=== PATIENT | female | born 1955 | race African-American/Black ===

== ENCOUNTER 2018-04-19 20:55 | Emergency (ER) | payer MEDICARE, MEDICAID ==
[~2018-04-19] VITALS: Ht 152.4 cm; Wt 90.7 kg
[~2018-04-19 20:55] MED LIST: TRAM-411
[2018-04-19 21:10] VITALS: BP 120/80
[2018-04-19] MEDS ORDERED: HYDROcodone-ACET 5/325MG TAB PO ONE (21:15)
== END 2018-04-19 23:05 | disposition home or self-care (01) ==
LOC: ER 20:55 → EDBD 20:55 → ER 23:05
DX: S90.32XA Contusion of left foot, initial encounter (principal); W20.8XXA Other cause of strike by thrown, projected or falling object, initial encounter; Y93.89 Activity, other specified; Y92.89 Other specified places as the place of occurrence of the external cause; Y99.8 Other external cause status
CPT/HCPCS: 73630; 99284; L3260

== ENCOUNTER 2025-01-17 12:57 | Emergency (ER) | payer BC, OTHER ==
[~2025-01-17] VITALS: Ht 152.4 cm; Wt 91.0 kg
[2025-01-17] MEDS: FAMOTIDINE 20 MG TAB PO ONE (14:22)
[2025-01-17] MEDS: LORATADINE 10 MG TAB PO ONE (14:22)
[2025-01-17] MEDS: methylPREDNISolone SOD SUCC 40 MG/ML VL IM ONE (14:25)
[2025-01-17] MEDS ORDERED: PRED20TA2 PO (15:02)
[2025-01-17] MEDS ORDERED: HYDR-3682 PO (15:02)
[2025-01-17] MEDS ORDERED: TRIO1TP EX (15:02)
[2025-01-17] MEDS ORDERED: CETI5TAB6 PO (15:02)
--- NOTE | 2025-01-17 15:02 | ED.PDOC ---
HPI Allergic reaction HPI Comments 69 year F presents for a scattered hives throughout the abdominal cavity. Onset occurred this morning. Unknown cause. Has not tried medication for the symptoms listed above. Never had this before. Denies his painful just itchy. Patient denies any fever, cough, difficulty swallowing, or shortness of breath Denies fever chills night sweats nausea vomiting diarrhea Denies persistent loss of appetite nor unintentional weight loss over the past 3 months Denies history of STI Denies cough and cold-like symptoms Denies recent travel Denies sick contact with similar rash Denies new topical creams/lotions/shampoos/detergents Denies noticing any insects Denies bruising bleeding anywhere Denies chronic skin issues or family history of skin issues Chief Complaint: Rash Time Seen by MD: 13:26 Primary Care Provider: harry Hernandez Notes: Nurses Notes, Medications, Allergies Allergies: Coded Allergies: NO KNOWN ALLERGIES (Unverified , 04/07/13) Home Meds Reported Medications Tramadol Hcl (Rybix Odt) 50 Mg Tab 04/07/13 Information Source: Patient Mode of Arrival: Ambulatory Past Medical History PAST MEDICAL HISTORY: Denies Surgical History: Denies all surgeries DIABETES SOLUTIONS SPECIALIST History: No Pertinent DIABETES SOLUTIONS SPECIALIST History Social History Smoker: Non-Smoker Alcohol: Denies ETOH Use Drugs: Denies Drug Use Lives In: Home All Other Systems: Reviewed and Negative (PER HPI) Physical Exam General Appearance: No Apparent Distress, Normal HEENT: Normal ENT Inspection, Pharynx Normal, TMs Normal Neck: Full Range of Motion, Non-Tender, Normal, Normal Inspection Respiratory: Chest Non-Tender, Lungs Clear, No Accessory Muscle Use, No Respiratory Distress, Normal Breath Sounds Cardiovascular: No Edema, No JVD, No Murmur, No Gallop, Normal Peripheral Pul ses, Regular Rate/Rhythm Breast Exam: Deferred Gastrointestinal: No Organomegaly, Non Tender, No Pulsatile Mass, Normal Bowel Sounds, Soft Genitalia: Deferred Pelvic: Deferred Rectal: Deferred Extremities: No calf tenderness, Normal capillary refill, Normal inspection, Normal range of motion, Non-tender, No pedal edema Musculoskeletal : Apperance: Normal Neurologic: Alert, certified prosthetist/orthotist II-XII nml as Tested, No Motor Deficits, Normal Affect, Normal Mood, No Sensory Deficits Cerebellar Function: Normal Reflexes: Normal Skin: Dry, Normal Color, Rash, Warm Lymphatic: No Adenopathy Was a procedure done? Was a procedure done?: No Differential diagnosis (all) Differential Diagnosis: Urticaria X-Ray, Labs, Meds, VS Vital Signs Date Time Temp Pulse Resp B/P (MAP) Pulse Ox O2 Delivery O2 Flow Rate FiO2 01/17/25 13:12 98.2 81 16 113/71 (85) 97 98.2 Current Medications Medications (Trade) Dose Ordered Sig/Dai Route Start Time Stop Time Status Last Admin Famotidine (Pepcid Tablet) 40 mg ONCE ONCE PO 01/17/25 14:30 01/17/25 14:31 DC 01/17/25 14:22 Methylprednisolone Sodium Succinate (Solu Medrol) 120 mg ONCE ONCE IM 01/17/25 14:30 01/17/25 14:31 DC 01/17/25 14:25 Loratadine (Claritin Tablet) 10 mg ONCE ONCE PO 01/17/25 14:30 01/17/25 14:31 DC 01/17/25 14:22 X-Ray, Labs, Meds, VS Comment Pt presents ED for an allergic reaction. Solu-Medrol and Pepcid administered in ED for treatment. Patient reports significant improvement in symptoms following treatment. Patient was monitored in the ED for an extended amount of time. Medrol Dosepak prescribed for additional treatment Patient was instructed to take hydroxyzine and use calamine lotion as needed for itchiness Follow-up with PCP in 1 to 2 days. Patient needs sustainability officer referral for further testing Return to ED if symptoms persist, or sooner if symptoms worsen Time of 1ST Reevaluation: 14:59 Reevaluation 1ST: Improved Patient Education/Counseling: Diagnosis, Treatment Family Education/Counseling: Diagnosis, Treatment Departure 1 Departure Time of Disposition: 15:00 Impression: Primary Impression: Acute urticaria Disposition: HOME / SELF CARE / HOMELESS Condition: Stable Additional Instructions: Discharge Note: Continue on your medications. Drink plenty of fluids. Follow up with your primary Dr. Take your prescriptions as ordered. If your condition becomes worse call and follow up with your primary Dr. for instructions or return to the ER if needed. Thank you for visiting [facility]. e-Prescriptions Triamcinolone Acetonide (Triamcinolone Acetonide) 0.1 % Cre 1 APPLIC EX BID for 5 Days, #80 GRAMS 0 Refills Prov: NYLA ROBIN NP 01/17/25 Cetirizine Hcl (Cetirizine Hcl) 5 Mg Tab 10 MG PO DAILY for 7 Days, #14 TAB 0 Refills Prov: NYLA ROBIN NP 01/17/25 Hydroxyzine Hcl (Hydroxyzine Hcl) 25 Mg Tab 1 TAB PO QHSP PRN for 7 Days, #7 TAB 0 Refills Prov: NYLA ROBIN NP 01/17/25 Prednisone (Prednisone) 20 Mg Tab 40 MG PO DAILY for 5 Days, #10 TAB 0 Refills Prov: NYLA ROBIN NP 01/17/25 Critical Care Note Critical Care Time?: No Stability Stability form required: No Heart Score Heart Score: Heart Score Response (Comments) Value History N/A 0 EKG N/A 0 Age N/A 0 Risk Factors N/A 0 Troponin N/A 0 Total 0 NYLA ROBIN NP January 17, 2025 15:02
[2025-01-17 15:05] VITALS: BP 120/78; PULSE 74; RESP 16; TEMP 98.7; O2SAT 98
== END 2025-01-17 15:07 | disposition home or self-care (01) ==
LOC: ER 13:02
DX: L50.9 Urticaria, unspecified (principal); Z79.899 Other long term (current) drug therapy
CPT/HCPCS: 96372; 99283; J2919